=== PATIENT | female | born 1965 | race Caucasian/White ===

== ENCOUNTER 2019-12-24 12:32 | Outpatient (CLI) | payer BC ==
--- NOTE | 2019-12-24 13:03 | XRAY Report ---
PROCEDURE: Chest 2 View X-Ray INDICATIONS: UNSPECIFIED ASTHMA WITH ACUTE EXACERBATION TECHNIQUE: 2 view(s) of the chest. COMPARISON: None. FINDINGS: Surgical changes and devices: None. Lungs and pleura: No pleural effusions or pneumothorax. Lungs are clear. Mediastinum: Mediastinal contours are normal. Heart size is normal. Bones and chest wall: No suspicious bony abnormalities. Soft tissues appear unremarkable. IMPRESSION: Normal chest radiographs. Reviewed by: Matteo Vazquez MD on 12/24/2019 1:02 PM PDT Approved by: Matteo Vazquez MD on 12/24/2019 1:02 PM PDT Station ID: [id number]
== END 2019-12-24 12:33 | disposition home or self-care (01) ==
LOC: DI.S 12:32
DX: J45.901 Unspecified asthma with (acute) exacerbation (principal)
CPT/HCPCS: 71046